=== PATIENT | female | born 1980 | race Caucasian/White ===

== ENCOUNTER 2018-10-30 07:04 | Day surgery (SDC) | payer OTHER ==
[2018-10-30] MEDS ORDERED: SCOPOLAMINE HYDROBROMIDE 1.5MG/72HR PATCH TD ONE (08:21)
[2018-10-30] MEDS ORDERED: FAMOTIDINE/PF 20 MG/2 ML VIAL ONE (08:21)
[2018-10-30] MEDS ORDERED: LACTATED RINGERS 1,000 ML IV ONE (08:21)
[2018-10-30] MEDS ORDERED: ENOXAPARIN SODIUM 40 MG/0.4 ML DISP.SYRIN SQ ONE (08:21)
[2018-10-30] MEDS ORDERED: SODIUM CHLORIDE IRRIG SOLUTION 3,000 ML IRRIG.SOLN IR ONE (08:48)
[2018-10-30] MEDS ORDERED: LACTATED RINGERS 1,000 ML IV.SOLN IV ONE (08:48)
[2018-10-30] MEDS ORDERED: PROPOFOL 200 MG/20 ML VIAL IV ONE (08:48)
[2018-10-30] MEDS ORDERED: ACETAMINOPHEN 1,000 MG/100 ML INJ IV ONE (08:48)
[2018-10-30] MEDS ORDERED: LABETALOL HCL 20 MG/4 ML SYRINGE IV ONE (08:48)
[2018-10-30] MEDS ORDERED: SUGAMMADEX 200 mg/2mL ML VIAL IV ONE (08:48)
[2018-10-30] MEDS ORDERED: DEXAMETHASONE SOD PHOS 4 MG/ML VIAL ONE (08:48)
[2018-10-30] MEDS ORDERED: BUPIV. HCL 0.25% (2.5MG/ML)/EPI. (1:200,000) PF 30 ML VIAL IJ ONE (08:48)
[2018-10-30] MEDS ORDERED: FENTANYL 250MCG/5ML VIAL ONE (08:48)
[2018-10-30] MEDS ORDERED: ONDANSETRON HCL/PF 4 MG/ 2ML VIAL ONE (08:48)
[2018-10-30] MEDS ORDERED: MIDAZOLAM HCL 2 MG/2 ML VIAL ONE (08:48)
[2018-10-30] MEDS ORDERED: ROCURONIUM BROMIDE 10 MG/ML 5ML VIAL ONE (08:48)
[2018-10-30] MEDS ORDERED: LIDOCAINE HCL 2% PF 100MG/5ML VIAL IJ ONE (08:48)
[2018-10-30] MEDS ORDERED: SEVOFLURANE 250 ML LIQUID IH ONE (08:48)
[2018-10-30] MEDS ORDERED: hydrALAZINE HCL 20 MG/1 ML ONE ×2 (15:55→16:43)
[2018-10-30] MEDS ORDERED: HYDROmorphone HCL/PF 2 MG/ML VIAL ONE (15:55)
== END 2018-10-30 17:33 | disposition other institution (70) ==
LOC: OPSURG 07:04
PROVIDERS: ATTEND Surgery
DX: E66.01 Morbid (severe) obesity due to excess calories (principal); Z68.44 Body mass index [BMI] 60.0-69.9, adult; I10 Essential (primary) hypertension; K21.9 Gastro-esophageal reflux disease without esophagitis; M19.90 Unspecified osteoarthritis, unspecified site; E03.9 Hypothyroidism, unspecified; F41.9 Anxiety disorder, unspecified; Z32.02 Encounter for pregnancy test, result negative
CPT/HCPCS: 43775; 81025; 88305; A9270; J0360; J1100; J1170; J1650; J2001; J2250; J2405; J2704; J7120; S0028

== ENCOUNTER 2018-10-30 17:33 | Inpatient (IN) | payer OTHER ==
[2018-10-30] MEDS ORDERED: hydrALAZINE HCL 20 MG/1 ML IVP ONE (17:35)
[2018-10-30] MEDS ORDERED: 0.9 % SODIUM CHLORIDE 1,000 ML IV ONE (17:38)
[2018-10-30] MEDS ORDERED: fentaNYL CITRATE/PF 100 MCG/ 2ML AMP IVP PRN (17:54)
[2018-10-30] MEDS ORDERED: ACETAMINOPHEN 1,000 MG/100 ML INJ IV PRN (17:54)
[2018-10-30] MEDS ORDERED: MORPHINE SULFATE 4 MG/ML PREFILLED SYR IVP PRN (17:54)
[2018-10-30] MEDS ORDERED: PROMETHAZINE HCL 25 MG in 0.9 % SODIUM CHLORIDE 50 ML IV PRN (17:54)
[2018-10-30] MEDS ORDERED: ONDANSETRON HCL/PF 4 MG/ 2ML VIAL IVP PRN (17:54)
[2018-10-30] MEDS: ENOXAPARIN SODIUM 40 MG/0.4 ML DISP.SYRIN SQ SCH (18:31)
[2018-10-30] MEDS: 0.9 % SODIUM CHLORIDE 1,000 ML IV SCH (18:31)
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
[2018-10-30] MEDS ORDERED: 0.9 % SODIUM CHLORIDE 50 ML IV ONE (20:07)
[2018-10-30 20:17] VITALS: BMI 54.0
[2018-10-30] MEDS: HYDROcodone /APAP 10/325 1 EACH TABLET PO PRN (20:25)
[2018-10-30] MEDS: FAMOTIDINE/PF 20 MG/2 ML VIAL IVP SCH (20:32)
[2018-10-30] MEDS: CEFAZOLIN SODIUM/DEXTROSE,ISO 1 GM/50 ML PIGGYBACK IV SCH (21:30)
[2018-10-30] MEDS ORDERED: MORPHINE SULFATE 5 MG/ML ML IJ PRN (22:22)
[2018-10-31] MEDS: HYDROcodone /APAP 10/325 1 EACH TABLET PO PRN ×2 (02:04→14:33)
[2018-10-31] MEDS: 0.9 % SODIUM CHLORIDE 1,000 ML IV SCH ×3 (02:41→15:48)
[2018-10-31] MEDS: CEFAZOLIN SODIUM/DEXTROSE,ISO 1 GM/50 ML PIGGYBACK IV SCH (05:32)
--- NOTE | 2018-10-31 07:52 | Inpatient Progress Note ---
Subjective - Required Recertification Statement I anticipate X number of days because-include discharge plan: 1 day - Review of Systems Events since last encounter: Post Op Day #1 Patient seems to be doing well. Pain has been doing fair. Pain has been manageable. Patient has had some nausea but no vomiting noted. No flatus yet. Patient has been up ambulating and using incentive spirometry. Feels that she needs her antidepressant medication. Wang did have some elevated BP during surgery but seems to be doing better at this time. Is on metoprolol at this time, decreased dose. Pulmonary: Denies: Dyspnea, Cough Cardiovascular: Denies: Chest Pain, Palpitations Gastrointestinal: Nausea, Abdominal Pain. Denies: Vomiting Objective - Exam Vitals and I&O: Vital Signs Temp 98.3 F 10/31/18 06:00 Pulse 78 10/31/18 06:00 Resp 16 10/31/18 06:00 BP 162/79 10/31/18 06:00 Pulse Ox 97 10/31/18 06:00 Intake & Output 10/30/18 10/30/18 10/31/18 11:59 23:59 11:59 Intake Total 1020 120 Output Total 600 250 Balance 420 -130 Weight 156.489 kg Intake: IV 900 Right Antecubital 900 Oral 120 120 Output: Urine 600 250 Other: # Voids 1 2 General: Alert, Oriented to Person, Oriented to Place, Oriented to Time, Cooperative Neck: Supple, No JVD, No thyromegaly Lungs: Clear to auscultation, Normal air movement, Speaks full Sentences Cardiovascular: Regular rate, Normal S1, Normal S2, No murmurs Abdomen: Soft, Other (incision), Decreased Bowel Sounds. No: Distended Skin: Normal, [place], Warm, Dry Assessment/Plan - Assessment/Plan (1) Depressed Status: Chronic Current Visit: Yes Assessment: will restart depression medication. (2) Hypertension Status: Chronic Current Visit: Yes Qualifiers: Hypertension type: essential hypertension Qualified Code(s): I10 - Essential (primary) hypertension Assessment: stable off home med (3) Morbid obesity Status: Chronic Current Visit: Yes Assessment: table post op course.
[2018-10-31] MEDS ORDERED: SERTRALINE HCL 50 MG TABLET ONE (08:05)
[2018-10-31] MEDS: FAMOTIDINE/PF 20 MG/2 ML VIAL IVP SCH ×2 (08:58→21:14)
[2018-10-31] MEDS ORDERED: DULoxetine HCL 30 MG CAPSULE.DR PO ONE ×2 (09:04→19:07)
[2018-10-31] MEDS: DULoxetine HCL 30 MG CAPSULE.DR PO SCH ×2 (09:05→21:13)
[2018-10-31] MEDS: METOPROLOL TARTRATE 50 MG TABLET PO SCH (09:06)
[2018-10-31] MEDS: ENOXAPARIN SODIUM 40 MG/0.4 ML DISP.SYRIN SQ SCH (17:51)
[2018-11-01] MEDS ORDERED: ONDANSETRON HCL 4 MG TAB.RAPDIS PO PRN (01:18)
[2018-11-01] MEDS ORDERED: FAMOTIDINE 20 MG TABLET PO ONE (01:30)
[2018-11-01] MEDS ORDERED: FAMOTIDINE 20 MG TABLET ONE ×2 (01:32→07:46)
[2018-11-01] MEDS ORDERED: ONDANSETRON HCL 4 MG TAB.RAPDIS ONE (01:32)
[2018-11-01] MEDS: HYDROcodone /APAP 10/325 1 EACH TABLET PO PRN (01:34)
[2018-11-01] MEDS: 0.9 % SODIUM CHLORIDE 1,000 ML IV SCH ×2 (05:23→12:10)
[2018-11-01] MEDS ORDERED: DULoxetine HCL 30 MG CAPSULE.DR PO ONE (07:47)
[2018-11-01] MEDS: DULoxetine HCL 30 MG CAPSULE.DR PO SCH (08:58)
[2018-11-01] MEDS: METOPROLOL TARTRATE 50 MG TABLET PO SCH (08:58)
[2018-11-01] MEDS ORDERED: FAMOTIDINE 20 MG TABLET PO SCH (09:00)
[2018-11-01 10:35] VITALS: BP 154/81
== END 2018-11-01 10:20 | disposition home or self-care (01) | DRG 641 ==
LOC: SOUTH 17:33
PROVIDERS: ADMIT Nurse Practitioner Family; ATTEND Nurse Practitioner Family
DX: E66.01 Morbid (severe) obesity due to excess calories (principal); Z68.44 Body mass index [BMI] 60.0-69.9, adult; K21.9 Gastro-esophageal reflux disease without esophagitis; I10 Essential (primary) hypertension; E03.9 Hypothyroidism, unspecified; F41.9 Anxiety disorder, unspecified; M19.90 Unspecified osteoarthritis, unspecified site
CPT/HCPCS: 99221; 99222; J0360; J1650; J2405; S0028; A9270; J7030; S1016